=== PATIENT | female | born 1960 | race Caucasian/White ===

== ENCOUNTER 2025-01-01 20:21 | Inpatient (IN) | payer OTHER, SELFPAY ==
[2025-01-01] VITALS (12 sets, daily range): BP systolic 102–129; BP diastolic 49–90; PULSE 73–90; BMI 24.8
[2025-01-01 12:38] LABS: Hematocrit 35.9 % (37.0-47.0); Hemoglobin 12.1 g/dL (12.0-16.0); Mean Corp Hgb Conc. 33.7 g/dL (33.0-37.0); Mean Corpuscular Volume 94.0 fL (81.0-99.0); Nucleated Red Blood Cells % 0 %; Platelet Count 362 10^3/uL (130-400); Red Cell Dist. Width 13.0 % (11.5-14.5)
[2025-01-01 12:57] LABS: ALT (SGPT) 26 U/L (0-35); AST (SGOT) 37 U/L (14-36); Albumin 4.2 g/dl (3.5-5.0); Alkaline Phosphatase 75 U/L (38-126); Blood Urea Nitrogen 10 mg/dl (7-17); Calcium 9.4 mg/dl (8.4-10.2); Carbon Dioxide 22 mmol/L (22-30); Chloride 104 mmol/L (98-107); Glucose 101 mg/dl (70-99); Potassium 4.5 mmol/L (3.5-5.1); Sodium 134 mmol/L (135-145); Total Protein 6.5 g/dl (6.3-8.2); eGFR > 60.00
[2025-01-01 13:10] LABS: Troponin I < 0.012 ng/ml
--- NOTE | 2025-01-01 16:07 | ED.GENMED ---
History of Present Illness
General
Chief Complaint: Weakness
Source: patient and significant other
Exam Limitations: clinical condition and dementia
Time Seen by Provider: 01/01/25 14:48
Nursing documentation reviewed up to this point in time: agreed with
History of Present Illness
History of Present Illness:
pt is a 64 y/o F
h/o alzheimers
adrenal insufficiency (addisons) on steroids
gradual decline in ambulatory status th epas t1 mo
seems to have begun after a fall where she hit her head after being unable to catch herself when she started shuffling forward
she had no LOC
pt has a wheelchair but hadn't needed to use except for long distances
had no cane or walker
but noticing she is more an dmore weak, lightheaded, off balance
specifically the past 1 week she has been severely unable to walk
she stands and maybe takes a step or two and starts a forward shulffling an dcannot stop herself, leaning forward
pt fell again about 4 days ago without head strike
pt's cannot leave her side
she also has had about a month of diarrhea about 3 episdodes a day most days; has had issues getting herself to the bathroom becuas eof hthe walking trouble
pt has not had any vomtign or abd pain o rfever
she hasn't missed doses of her steorids
takes prednisone an dfludrocortisone
about 1 week ago she started having burning in her R abdomen
and some tiching
then got a rash and thoguht it was becuase of the back brace she has been wearing
then they started getting more like blisters and went to 4 day [facility]ago and got valtrex for shingles
pt has not used any more steroids with this infectoin
she has not had fever
Past History
Past History
ED Past Medical History: Asthma, Hypothyroidism and Other (Adrenal insufficiency, chronic low back pain, UTI, Low BP, Early Alzheimers)
ED Past Surgical History: None
Social History
Tobacco: Non-smoker
Alcohol: Occasional
Drug: None
Personal:
Living: with family
Review of Systems
Review of Systems
Allergies reviewed?: Yes
Unable to obtain full review of systems at this time due to: dementia
Other source history: family
Phy Exam
Physical Exam
Physical Exam:
GENERAL: Alert , in no apparent distress
HEAD: NCAT
EYE: pupils equal and reactive, no nystagmus, photophobia
NECK: Supple,full rom, nontender
ENT: o/p clr, mmm.
CARDIAC: Regular rate and rhythm . no edema
LUNGS: Clear breath sounds bilaterally, no acute respiratory distress, no wheezes/rales/rhonchi
ABDOMEN: Soft, without focal tenderness, no r/g, no cvat
NEUROLOGICAL: Alert and orientedx 2, cn intact, no facial asymmetry, 5/5 strength in UE/LE, sensation intact, cannot ambulate without assistance, has a wider base gait and then starts shuffling and seems weak
SKIN: Warm and dry, skin intact. Pale
MUSCULOSKELETAL: No edema, well perfused.
PSYCH: Normal and appropriate interaction.
Course
Orders/Labs/Results
Orders:
Orders
01/01/25 12:10
EKG [Electrocardiogram (*1)] Urgent
Reason for Study: Vertigo / Dizzy
EKG- Treatment ONCE
01/01/25 12:18
Complete Blood Count/With Diff Urgent
Comprehensive Metabolic Panel Urgent
Troponin I Urgent
01/01/25 15:49
Orthostatic VS- Treatment ONCE
01/01/25 15:50
CT Head W/o Iv Contrast Urgent
Comment:
Reason For Exam: fall 3 weeks ago, now shuffling gait;
Urinalysis Reflex To Culture Urgent
Date Specimen was Collected: 01/01/25
Time Specimen was Collected: 18:08
01/01/25 16:01
STOOL [C difficile Antigen & Toxins] Urgent
ELODIA Source: Feces/Stool
Specimen Description:
Date Specimen was Collected: 01/01/25
Time Specimen was Collected: 16:00
Stool Culture Urgent
ELODIA Source: Feces/Stool
Specimen Description:
Date Specimen was Collected: 01/01/25
Time Specimen was Collected: 16:00
01/01/25 17:15
Hydrocortisone Sod Succinate [Solu-Cortef] 100 mg IV NOW STA
Abnormal Lab Results
01/01/25
12:18
RBC 3.82 L 10^6/uL
(4.20-5.40)
Hct 35.9 L %
(37.0-47.0)
MCH 31.7 H pg
(27.0-31.0)
Neutrophils % 35.2 L %
(42.2-75.2)
Monocytes % 11.6 H %
(1.7-9.3)
Sodium 134 L mmol/L
(135-145)
Glucose 101 H mg/dl
(70-99)
AST 37 H U/L
(14-36)
01/01/25 12:18
01/01/25 12:18
Vital Signs
Initial and Last Documented VS:
Initial Vital Signs
Temp Pulse Resp BP Pulse Ox
36.8 C 86 16 102/72 99
01/01/25 12:06 01/01/25 12:06 01/01/25 12:06 01/01/25 12:06 01/01/25 12:06
Last Documented Vital Signs
Temp Pulse Resp BP Pulse Ox
36.8 C 78 18 106/85 99
01/01/25 12:06 01/01/25 14:15 01/01/25 18:00 01/01/25 14:02 01/01/25 16:11
MDM/Problems Addressed
Differential Diagnosis Includes:
Head trauma, hydrocephalus, hyponatremia or electrolyte disturbance, infection like UTI, colitis, adrenal insufficiency or adrenal crisis
MDM/Problems Addressed:
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 She had a fall when this really first began and she did strike her head at the time but had no change in mental status
from her baseline mild dementia. was able to get her up and she was able to walk without assistance for about 2 weeks until the last week when she is really needed significant assistance. She went from only using a wheelchair for long
distances to needing help after just standing up from sitting. She seems to have a couple of good steps and then will start shuffling forward, tilting forward and nearly falling onto her face. She last fell 4 days ago without any head strike. She
has not had a fever but recently broke out in a shingles rash. She went to urgent care for that diagnosis and has been on Valtrex. She has never received stress dose steroids to the 's knowledge. She has been taking her steroids. Over the
last 3 to 4 weeks she has had pretty liquid diarrhea.
On exam she has no focal neurodeficits but she certainly cannot walk unassisted, seems lightheaded with standing. Her blood pressure soft at 100 systolic. She has had several bouts of loose stool. I am concerned about hydrocephalus versus adrenal
crisis from recent infection with the shingles rash that is significantly present to her right abdomen with many vesicles on erythematous base
Less concerned about a UTI or sepsis causing this picture. Her CT does show dilated ventricles worse than previous which could be normal pressure hydrocephalus which does make sense. I discussed this case with ED attending. We will give her dose
of stress dose steroids in the meantime and admit for neuro consult
*Pulse Oximetry
SaO2: 99
Oxygen Mode of Delivery: Room air
Patient hypoxic: no (99)
*Critical Care Note
Total Time (30-74mins, 75-104mins- exclusive of procedures): Not Applicable
ED Attending Note
-
Portions of this chart may have been created with voice recognition software.� Occasional wrong word or��sound alike� substitutions may have occurred due to the inherent limitations of voice recognition software.
Discharge Plan
Departure
Patient Disposition: Admit
Date of Disposition: 01/01/25
Time of Disposition: 17:16
Admit to: Med/Surg
Presentation/result/management discussed w/ accepting MD/DO: Hospitalist
Condition: Fair
Covid-19: Not Applicable
Discharge Problem:
Ambulatory dysfunction, Adrenal insufficiency, Hydrocephalus
Prescriptions:
No Action
alendronate 70 MG tablet
70 mg PO FR@0800
atorvastatin 20 mg Tablet
20 mg PO HS
donepezil 10 mg Tablet
10 mg PO HS
sertraline 50 mg Tablet
50 mg PO DAILY
memantine 28 mg Capsule,Sprinkle,Er 24hr
28 mg PO DAILY
therapeutic multivitamin Tablet
1 tab PO DAILY
calcium carbonate 500 mg calcium (1,250 mg) Tablet
500 mg PO HS
diphenhydramine-acetaminophen [Tylenol PM Extra Strength] 25-500 mg Tablet
1 tab PO HS
fludrocortisone 0.1 MG tablet
0.05 mg PO BID Qty: 0 0RF
valacyclovir 1 gram Tablet
1,000 mg PO TID
Patient Comments:
01/01/2025, filled on 12/29/2024 and instructed to take 1 tablet TID for 7 days.
loperamide [Anti-Diarrheal (loperamide)] 2 mg Tablet
2 mg PO DAILYPRN PRN (Reason: diarrhea)
levothyroxine 125 mcg Tablet
125 mcg PO DAILY
lidocaine 5 % Adhesive Patch,Medicated
1 patch TOPICAL DAILYPRN PRN (Reason: R shoulder/middle & lower back)
ibuprofen 200 mg Tablet
600 mg PO BIDPRN PRN (Reason: mild pain)
vitamin E 268 mg (400 unit) Capsule
268 mg PO DAILY
Tums
2 tab PO TIDPRN PRN (Reason: diarrhea)
prednisone 5 MG tablet
5 mg PO DAILY
Referrals:
Lemuel Navarro MD [Family Provider, Internal Medicine]
Interventions
Interventions:
*Risk Screen - Suicide Last Done: 01/01/25 12:06
*General Assessment Last Done: 01/01/25 12:06
*Neglect/Abuse Screening Last Done: 01/01/25 12:06
*ED- Fall Risk Assessment Last Done: 01/01/25 14:25
*ED COVID-19 Vaccine History Last Done: 01/01/25 14:25
ED- Cardiac Assessment Last Done: 01/01/25 14:21
ED- Neurological Assessment Last Done: 01/01/25 14:21
ED- Pulmonary Assessment Last Done: 01/01/25 14:22
Discharge Date and Time
Print Language: CENTRAL AFRICAN
[2025-01-01] MEDS: SOLU-CORTEF 100 MG IV (17:36)
[2025-01-01 18:50] LABS: Urine Character Clear (Clear)
[2025-01-01 19:21] LABS: Urine Red Blood Cell 0-2 /HPF (0-2); Urine White Cell 0-2 /HPF (0-5)
--- NOTE | 2025-01-01 19:33 | HPS.HSE ---
Family Physician
-
Family Physician: Lemuel Navarro MD
Chief Complaint
-
falls
History of Present Illness
HPI
Adrenal insufficiency, chronic 5 mg BID prednisone
64F HX Adrenal insufficiency on steroids, recent Zoster on Valtrex seen at ER:
- pw few fall Falls and gradual decline in ambulatory status
- reports head strike with fall. Denied LoC
- chr gait dysfunction - use WC for long distances, no cane or walker
- weak, lightheaded, off balance
- reports a month of diarrhea about 3 episodes a day most days
- No vomiting
- Compliance with chronic steroids ( prednisone an dfludrocortisone)
- Recently Dxed abdominale wall shinglers [place] [facility] [place] started on Valtrex
- has not used any more steroids with this infectoin
- No fever
Medical History
Past Medical History
Past Medical History: Reports Other (Asthma, Hypothyroidism and Other (Adrenal insufficiency, chronic low back pain, UTI, Low BP, Early Alzheimers))
Past Surgical History: Reports None
Social History
Tobacco: Non-smoker
Alcohol: Occasional
Drug: None
Living: With Family
Family History
Family History: Not pertinent
Allergies / Home Medications
Allergies reflects when Allergies were last updated in [facility].
Home Medications with original date entered in [facility]
Allergy/Medication List:
Allergies
Allergy/AdvReac Type Severity Reaction Status Date / Time
Penicillins Allergy Unknown Unknown Verified 05/12/23 23:38
Home Medications
Multivitamin 1 tab PO DAILY 12/16/21
alendronate 70 mg tablet 70 mg PO WEEKLY 12/16/21
calcium-vitamin D3-vitamin K 500 mg-1,000 unit-40 mcg chewable tablet 1 ea PO DAILY 12/16/21
fludrocortisone 0.1 mg tablet 0.05 mg PO DAILY 12/16/21
levothyroxine 125 mcg tablet 125 mcg PO DAILY 12/16/21
prednisone 5 mg tablet 5 mg PO BID 12/16/21
vitamin E 268 mg (400 unit) capsule 400 unit PO DAILY 12/16/21
atorvastatin 20 mg tablet 20 mg PO DAILY 05/12/23
donepezil 10 mg tablet 10 mg PO DAILY 05/12/23
memantine 28 mg capsule sprinkle,extended release 24hr 28 mg PO DAILY 05/12/23
sertraline 50 mg tablet 50 mg PO DAILY 05/12/23
Review of Systems
-
Constitutional: Reports No Symptoms
EENT: Reports No Symptoms
Respiratory: Reports No Symptoms
Cardiac: Reports No Symptoms
Abdomen/GI: Reports No Symptoms
: Reports No Symptoms
Musculoskeletal: Reports No Symptoms
Skin: Reports No Symptoms
Neurological: Reports No Symptoms
Endocrine: Reports No Symptoms
Hematologic/Lymphatic: Reports No Symptoms
Psych: Reports No Symptoms
Physical Exam
Vital Signs
Vital Signs
Temp Pulse Resp BP Pulse Ox
98.2 F 78 18 106/85 99
01/01/25 12:06 01/01/25 14:15 01/01/25 18:00 01/01/25 14:02 01/01/25 16:11
Physical Exam
General: Well Developed, Well Nourished, No Apparent Distress, Comfortable, Conversant and Other (not toxic looking )
HEENT: NormoCephalic, Moist mucous membranes, Atraumatic and Other (pale complexion )
Respiratory: Clear
Cardiac: S1/S2 and Regular Rhythm; No Murmur or Rub
GI: Soft, Non Tender, Non Distended and Normal Bowel Sounds; No Organomegaly
Rectal: Deferred by Provider
Musculoskeletal: No Clubbing, No Cyanosis and No Edema
Skin: Rash (Rt sided ant abdominal wall shingles )
Neuro: Nonfocal/grossly intact
Psych: Calm
Laboratory Results
-
01/01/25 12:18
01/01/25 12:18
Laboratory Results
Total Bilirubin 0.5 mg/dl (0.2-1.3) 01/01/25 12:18
AST 37 U/L (14-36) H 01/01/25 12:18
ALT 26 U/L (0-35) 01/01/25 12:18
Alkaline Phosphatase 75 U/L (38-126) 01/01/25 12:18
Troponin I < 0.012 ng/ml 01/01/25 12:18
Data Reviewed
-
CT Scan: Report Reviewed by me
Lab Data: Labs Reviewed by me
Old Records: Reviewed
Impression/Plan
-
VSS
01/01/25
12:06 01/01/25
14:02
Temp 98.2 F
Pulse 86
Resp Rate 16
Blood pressure 102/72 106/85
SaO2 99
Oxygen Mode of Delivery Room air
Labs
01/01/25 01/01/25
12:18 18:09
WBC 4.8
Hgb 12.1
Sodium 134 L
Potassium 4.5
Carbon Dioxide 22
Creatinine 0.9
eGFR > 60.00
AST 37 H
Troponin I < 0.012
Urine WBC (Reflex) 0-2
Urine Bacteria (Reflex) Few A
HCT
- No evidence for acute intracranial hemorrhage.
- Ventricular dilation which has progressed since CT scan in November 2021.
As described, findings suggest the possibility of normal pressure hydrocephalus.
- Leukomalacia, which appears greatest in the periventricular white matter of the superior right parietal lobe, with progression since previous CT examinations. Findings could represent demyelination and/or small vessel ischemic change.
- As warranted, consideration for further evaluation with MRI of the brain.
Last hospitalist admission: 05/13/2023 - 05/15/2023
PRIMARY DIAGNOSES:
1. Fever with chills, suspected viral.
2. Weakness worse than baseline, suspected probably combination of
infection and adrenal insufficiency.
3. Hyponatremia suspected secondary to adrenal insufficiency.
SECONDARY DIAGNOSIS: History of chronic adrenal insufficiency on
prednisone and fludrocortisone.
ASSESSMENT & PLAN
Pending Rx reconciliation
Immunocompromise patient
HX chr prednisone dependent due to adrenal adrenal insufficiency
Falls with head strike - NEG HCT for acute ICH
Hypotension: DDX: brewing sepsis vs relative adrenal insufficiency due to acute viral infection with VCZ vs dehydration
So far No Fever, Nl WCC. Clinically not toxic looking
Asso. severe general weakness and debility
Acute on chronic ambulatory dysfunction.
DDX: Sepsis, Symptomatic adrenal insufficiency due to vomiting loss of prednsione triggered by acute infection
- HX PCN allergy
- IV hydrocortisone 100mg stat at ER
- sress dose IV hydrocortisone 50 mg q8h
- IV NS
- BCx then Empiric IV vanco and Aztreonam in case brewing sepsis
- PT/OT
Rt sided ant abdominal wall VCZ shingles
- cont. Valtrex
Hypothyroidism
- Continue T4 supplementation.
- Patient denies hypopituitarism with hypothyroid and adrenal insufficiency.
HX Dementia vs MCI
Questionable NPH on CT
Chr gait dysfunction
- On Donepezil
- PT/OT
DVT Px: LMWH
Full code
IMU
--- NOTE | 2025-01-01 22:09 | PHA.VAN.IN ---
Assessment
- Assessment
Renal Function: Appears similar to baseline
Maximum Temperature: 98.2
Minimum Temperature: 97.6
Concomitant Antimicrobials: Aztreonam
AUC Dosing Plan
- Empiric Dosing
Initial / Loading Dose: 1500mg-7/6
Maintenance Regimen: 1500mg Q24H
Estimated AUC (mcg*h/mL): 557
Estimated Peak (mcg*h/mL): 40.5
Estimated Trough (mcg/ml): 11.5
Estimated Half Life (H): 12.4
- Monitoring
No levels ordered at this time: Consider levels in next few days
Pharmacokinetics Vancomycin I
- -
Patient Age: 64
Patient Sex: Female
Vancomycin Day #: 1
Indication: Other/Seps
Requesting Provider: Dr. Oscar
Pertinent Antimicrobial Allergies:
Penicillins
Height / Weight:
Height 5 ft 7 in
Actual Weight 71.7 kg
- Vital Signs / Lab Results
Temp Pulse Resp BP Pulse Ox
97.6 F 72 23 128/76 95
01/01/25 21:41 01/01/25 21:00 01/01/25 21:00 01/01/25 21:00 01/01/25 20:00
Lab Results - Hematology
01/01/25
12:18
WBC 4.8
Lab Results - Chemistry
01/01/25
12:18
BUN 10
Creatinine 0.9
Albumin 4.2
Lab Results - Urine
01/01/25
18:09
Urine Nitrite (Reflex) Negative
Leukocyte Esterase Rfl 1+ A
Urine WBC (Reflex) 0-2
Ur Squamous Epith Cells 3-5
Urine Bacteria (Reflex) Few A
[2025-01-01] MEDS: NSS 1000 IV (22:12)
[2025-01-01] MEDS: LIPITOR 20 MG PO (22:30)
[2025-01-01] MEDS: VANCOCIN 530 MG IV (22:31)
[2025-01-01] MEDS: VALTREX 1000 MG PO (22:31)
[2025-01-01] MEDS: STERILE WATER FOR INJECTION 10 ML IV (22:32)
[2025-01-01] MEDS: AZACTAM 1000 MG IV (22:32)
[2025-01-01] MEDS: ARICEPT 10 MG PO (22:33)
[2025-01-01] MEDS: SOLU-CORTEF 50 MG IV (23:27)
[2025-01-02] VITALS (14 sets, daily range): BP systolic 103–134; BP diastolic 50–82; PULSE 93–113; O2SAT 97; BMI 24.5
--- NOTE | 2025-01-02 02:39 | PTCARENOTE ---
Received patient from the ED overnight, pleasantly confused. IVF, IV abx infusing as ordered. Maintained on airborne precautions for shingles. No complaints of pain. Multiple small loose stools. Stool studies pending. Will continue to monitor.
[2025-01-02 03:19] LABS: Hematocrit 35.7 % (37.0-47.0); Hemoglobin 12.7 g/dL (12.0-16.0); Mean Corp Hgb Conc. 35.6 g/dL (33.0-37.0); Mean Corpuscular Volume 91.1 fL (81.0-99.0); Platelet Count 388 10^3/uL (130-400); Red Cell Dist. Width 12.9 % (11.5-14.5)
[2025-01-02 03:37] LABS: ALT (SGPT) 28 U/L (0-35); AST (SGOT) 36 U/L (14-36); Albumin 4.5 g/dl (3.5-5.0); Alkaline Phosphatase 76 U/L (38-126); Blood Urea Nitrogen 10 mg/dl (7-17); Calcium 9.0 mg/dl (8.4-10.2); Carbon Dioxide 20 mmol/L (22-30); Chloride 108 mmol/L (98-107); Estimated Creatinine Clearance 70 ml/min; Glucose 122 mg/dl (70-99); Potassium 4.4 mmol/L (3.5-5.1); Sodium 136 mmol/L (135-145); Total Protein 7.0 g/dl (6.3-8.2); eGFR > 60.00
[2025-01-02] MEDS: STERILE WATER FOR INJECTION 10 ML IV (05:25)
[2025-01-02] MEDS: SYNTHROID 125 MCG PO (05:25)
[2025-01-02] MEDS: AZACTAM 1000 MG IV (05:25)
[2025-01-02] MEDS: SOLU-CORTEF 50 MG IV ×2 (08:19→17:05)
[2025-01-02] MEDS: NAMENDA 10 MG PO (08:19)
[2025-01-02] MEDS: ZOLOFT 50 MG PO (08:19)
[2025-01-02] MEDS: VALTREX 1000 MG PO ×3 (08:19→20:42)
--- NOTE | 2025-01-02 09:45 | PHA.VAN.FU ---
Vancomycin Assessment / Plan
- Assessment
Renal Function: Stable
WBC's are: WNL
In the past 24 hrs, patient has been: Afebrile
Concomitant Antimicrobials: aztreonam, valacyclovir
- Dosing Plan
Adjust Regimen to: Vanc 750mg Q12H starting at 1800
New Regimen Predicts: AUC (498), Peak (28.6), Trough (14.4)
- Monitoring Plan
No level(s) ordered at this time: consider levels in next few days
MRSA Screen: Ordered per protocol
- Follow Up
Pharmacy will continue to follow.
Vancomycin Follow UP
- -
Patient Age: 64
Patient Sex: Female
Vancomycin Day #: 2
Indication: Other
Requesting Provider: Dr. Oscar
Pertinent Antimicrobial Allergies:
Penicillins - unknown, occurred as a child, tolerated piperacillin
Height / Weight:
Height 5 ft 7 in
Actual Weight 70.9 kg
- Vital Signs / Lab Results
Temp Pulse Resp BP Pulse Ox
97.6 F 77 22 127/73 97
01/02/25 03:00 01/02/25 08:45 01/02/25 08:45 01/02/25 08:24 01/02/25 08:45
Lab Results - Hematology
01/01/25 01/02/25
12:18 03:04
WBC 4.8 7.5
Lab Results - Chemistry
01/01/25 01/02/25
12:18 03:04
BUN 10 10
Creatinine 0.9 0.8
Estimated Creat Clear 70
Albumin 4.2 4.5
01/01/25 01/02/25 01/02/25
22:09 01:24 03:04
Lactic Acid 2.3 H Cancelled 1.3
01/02/25
09:24
Lactic Acid Cancelled
Lab Results - Urine
01/01/25
18:09
Urine Nitrite (Reflex) Negative
Leukocyte Esterase Rfl 1+ A
Ur Squamous Epith Cells 3-5
Microbiology Results
01/01/25 16:01 C. difficile GDH Antigen & Toxins - Final
Feces/Stool Negative for toxigenic C.difficile
--- NOTE | 2025-01-02 09:53 | PTCARENOTE ---
Patient AOx1 (self). Bed alarm on and audible. Patient have frequent loose BM's. PRN Imodium. C-diff negative. On RA with SpO2 greater than 92%. NSR on monitor and tachycardia during ambulation with HR in the 120's. BP stable. Shingles on R side of
body. IIVF running per order. Call persaud within reach, bed in lowest position, and bed of wheels locked.
--- NOTE | 2025-01-02 09:54 | W.PN.HOSP.TC ---
Today's Communication/Plan
-
PT/OT eval
med/surg transfer
see note
Assessment / Plan
Assessment / Plan
1. Hypotension
- no clear signs of sepsis, stop further Abx and monitor
- volume depletion with diarrhea or worsening of steroids deficiency can explain symptoms
- maintained on IVF for now,
- Started on IV Solucortef 50mg q8h at admission, continue for now. at home on Prednisone 5mg/d
2. Valdez's disease
- on regimen of prednisone 5mg/d and florinef 0.05mg/d at home
- hold oral prednisone, on IV solucortef currently
- maintain on florinef home dose
3. Shingles
- extensive involving right abd wall
- start date unclear, patient does not remember
- maintain on valtrex therapy
- blisters are scabbing, isolation per Infections prevention
4. Chronic diarrhea
- f/us with GI, does not remember name of physician
- will maintain on PRN Imodium
- will need to f/u with OP GI for further evaluation
5. Memory issues
- maintain on mematine
DVT PPX - lovenox
Full code
Transfer to med/surg
Anticipated Discharge: 24 - 48 hours
Subjective/Interval History
-
Date of Service: January 02, 2025
complains of having diarrhea, which is long term care social worker
no fever overnight
denies of having abd pain
Objective Data
-
Labs:
Laboratory Results
01/02/25
03:04
WBC 7.5
Hgb 12.7
Hct 35.7 L
Plt Count 388
Sodium 136
Potassium 4.4
Chloride 108 H
Carbon Dioxide 20 L
BUN 10
Creatinine 0.8
Glucose 122 H
Calcium 9.0
Total Bilirubin 0.5
AST 36
ALT 28
Alkaline Phosphatase 76
Vital Signs:
Vital Signs
Temp Pulse Resp BP Pulse Ox
97.6 F 77 22 127/73 97
01/02/25 03:00 01/02/25 08:45 01/02/25 08:45 01/02/25 08:24 01/02/25 08:45
I&O
01/01/25 01/02/25 01/03/25
06:59 06:59 06:59
Intake Total 1809
Balance 1809
Review of Systems
-
Respiratory: Reports No Symptoms
Cardiac: Reports No Symptoms
Abdomen/GI: Denies Diarrhea
Physical Exam
-
General: No Apparent Distress
HEENT: Negative Oxygen
Respiratory: Clear to Auscultation
Cardiac: Regular Rhythm and S1/S2; Negative Tachycardic
GI: Soft, Nontender and Nondistended
Neuro: AO x 3
Psych: Calm
[2025-01-02] MEDS: NSS 1000 IV ×2 (10:08→17:05)
[2025-01-02] MEDS: IMODIUM 2 MG PO (10:08)
[2025-01-02] MEDS: FLORINEF 0.05 MG PO (10:16)
--- NOTE | 2025-01-02 12:30 | PTCARENOTE ---
Assumed care of patient. Assessment completed and documented in shift assessment.
Patient is pleasantly confused, disoriented to time. Bed Alarm active. RA, lungs CTA. SR on monitor. L FA IV patent, infusing NS at 100. Frequently OOB to BSC for urination/diarrhea. Shingles Rash prominent throughout right-side of flank/back. This
RN personally believes some lesions are open so will continue airborne percautions at this time. Awaiting med-surgical bed.
[2025-01-02 12:58] LABS: Magnesium 2.0 mg/dl (1.6-2.3)
--- NOTE | 2025-01-02 14:50 | PTCARENOTE ---
Sent photo via TT for Dr. Ingram to clarify precaution orders. Dr. Ingram in agreement with this RN's assessment that patient should be on airborne precautions.
[2025-01-02] MEDS: LOVENOX 40 MG SC (17:05)
[2025-01-02] MEDS: LIPITOR 20 MG PO (20:42)
[2025-01-02] MEDS: ARICEPT 10 MG PO (20:42)
--- NOTE | 2025-01-02 21:01 | PTCARENOTE ---
Caring for pt overnight. aaox1, confused, forgetful, bed alarm on. Remains contact & airborne precautions for exposure to open wound shingles. Remains RA, HR regular. OOB to BSC X1. Pt still c/o dizziness & lightheadness. Denies pain. NO SOB. Will
monitor.
[2025-01-03] MEDS: SOLU-CORTEF 50 MG IV (00:25)
[2025-01-03 00:55] VITALS: BMI 24.5
[2025-01-03] MEDS: NSS 1000 IV (04:42)
[2025-01-03] MEDS: SYNTHROID 125 MCG PO (04:42)
[2025-01-03 05:02] LABS: Hematocrit 33.9 % (37.0-47.0); Hemoglobin 11.4 g/dL (12.0-16.0); Mean Corp Hgb Conc. 33.6 g/dL (33.0-37.0); Mean Corpuscular Volume 94.7 fL (81.0-99.0); Platelet Count 384 10^3/uL (130-400); Red Cell Dist. Width 12.9 % (11.5-14.5)
[2025-01-03 05:30] LABS: Blood Urea Nitrogen 6 mg/dl (7-17); Calcium 8.9 mg/dl (8.4-10.2); Carbon Dioxide 23 mmol/L (22-30); Chloride 112 mmol/L (98-107); Estimated Creatinine Clearance 80 ml/min; Glucose 104 mg/dl (70-99); Potassium 3.4 mmol/L (3.5-5.1); Sodium 141 mmol/L (135-145); eGFR > 60.00
--- NOTE | 2025-01-03 08:00 | PTCARENOTE ---
Assumed care of patient at 0645. Assessment completed and documented in nursing shift assessment on Worklist.
Patient is AAOxself, impulsive and forgetful. Bed alarm active for safety/fall risk. LIRA, uncooperative at times. Chronic pain in lower reported, manageable. On RA, diminished lung feliz throughout. +1 B/L LE edema, + pulses. Vitals stable. L FA IV
hep-locked, patent. Round abdomen, + BS. No BM today, passing flatus. Good appetite when meals ordered for her. Voiding yellow/straw urine in BSC. Bruising to B/L LE, large diffuse shingles rash extending from right flank to back MAURO.
Allowed RN to complete EKG that she initially refused this morning.
--- NOTE | 2025-01-03 08:18 | W.PN.HOSP.TC ---
Today's Communication/Plan
-
still requiring isolation for shingles
cont valcyclovir and pain control
wean stress dose steroids
d/c planning--await CM
Assessment / Plan
Assessment / Plan
pt is a 64 year old female
1. Hypotension--BP much improved--will decrease stress steroids
- no clear signs of sepsis, stop further Abx and monitor
- volume depletion with diarrhea or worsening of steroids deficiency can explain symptoms
- maintained on IVF for now,
- Started on IV Solucortef 50mg q8h at admission, continue for now. at home on Prednisone 5mg/d
2. [place]'s disease--weaning stress stereoids and cont florinef
- on regimen of prednisone 5mg/d and florinef 0.05mg/d at home
- hold oral prednisone, on IV solucortef currently
- maintain on florinef home dose
3. Shingles--still with open lesions--cont valcyclovir
- extensive involving right abd wall
- start date unclear, patient does not remember
- maintain on valtrex therapy
- blisters are scabbing, isolation per Infections prevention
4. Chronic diarrhea--pt does not c/o to me currently--outpt followup with GI
- f/us with GI, does not remember name of physician
- will maintain on PRN Imodium
- will need to f/u with OP GI for further evaluation
5. Memory issues--await CM notes--therapy rec SNF vs home with 24/7 supervision
- maintain on mematine
DVT PPX - lovenox
Full code
Transfer to med/surg
Anticipated Discharge: 24 - 48 hours
Subjective/Interval History
-
Date of Service: January 03, 2025
pt wants to see if the EKG is 'covered' prior to letting us get one
c/o being tired
Objective Data
-
Labs:
Laboratory Results
01/03/25
04:41
WBC 8.7
Hgb 11.4 L
Hct 33.9 L
Plt Count 384
Sodium 141
Potassium 3.4 L
Chloride 112 H
Carbon Dioxide 23
BUN 6 L
Creatinine 0.7
Glucose 104 H
Calcium 8.9
Vital Signs:
max temp for 24 hours
01/02/25
15:45
Temp 97.9 F
Vital Signs
Temp Pulse Resp BP Pulse Ox
97.5 F 73 17 130/79 95
01/02/25 22:48 01/02/25 22:48 01/02/25 22:48 01/02/25 22:48 01/02/25 22:48
I&O
01/02/25 01/03/25 01/04/25
06:59 06:59 06:59
Intake Total 1809 700 / 700
Balance 1809 700 / 700
Review of Systems
-
All other systems: Reviewed and negative
Constitutional: Reports Fatigue
Physical Exam
-
General: Well Developed, Well Nourished and No Apparent Distress
HEENT: Normocephalic and Atraumatic
Respiratory: Clear to Auscultation; Negative Wheezes or Rhonchi
Cardiac: Regular Rhythm and S1/S2; Negative Murmur
GI: Soft, Nontender, Nondistended and Normal Bowel Sounds
Musculoskeletal: No Clubbing, No Cyanosis and No Edema
Skin: Rash (shingles rash with open lesions on the back--wrapping around to front (all on right)-- does not cross midline)
Neuro: Awake and Alert
Psych: Apparent Dementia
[2025-01-03 08:21] VITALS: BP 131/83
[2025-01-03 08:27] VITALS: BP 131/83
[2025-01-03] MEDS: FLORINEF 0.05 MG PO (09:31)
[2025-01-03] MEDS: VALTREX 1000 MG PO ×3 (09:32→20:36)
[2025-01-03] MEDS: KCL 40 MEQ PO (09:32)
[2025-01-03] MEDS: SOLU-CORTEF IV (09:32)
[2025-01-03 14:49] VITALS: BP 115/65
[2025-01-03 15:00] VITALS: BP 115/65
[2025-01-03] MEDS: BENADRYL 25 MG PO (15:40)
[2025-01-03] MEDS: TYLENOL 650 MG PO ×2 (15:40→21:09)
--- NOTE | 2025-01-03 15:47 | CM ---
Addendum entered by Louann Castellano RN 01/03/25 16:01:
Additionally, attempted to discuss LTC planning with . He says patient will not want to go to a facility to live, having seen her parent reside in one.
Original Note:
Patient with Hx Alzheimers, falls with Dx hypotension, [place]'s disease, shingles. Contact Precautions/Airborne Precautions. Room air. Receiving IV Solucortef. PT recommends HH, OT recommends SNF vs home w/assist. Per nurse; confused,
forgetful.
Met with patient's Shad;
the patient resides with her in a 2 story house with 1 +1 outside steps.
She is assisted with ADLs and ambulation by her , who has been her sole caregiver.
He assists the patient to stand and walk into the bathroom using her RW, howewver wobbles when she walks.
The patient has fallen 2x within the last month.
DME - RW, w/c, shower bench
No prior VN or SNF.
Offered SNF for rehab vs home with HH and caregiver. says he prefers patient to return home with HH and he will contact caregiver agencies. Shad says the patient is not really motivated to do PT/OT and hasn't been very ambulatory since
last year. offered VN choice and chooses [facility]. Discussed caregiver for respite and provided caregiver list, as likes to to volunteer work in the evenings and may want someone from 6p-10pm. He has been leaving her alone while he
goes out and does errands, and is aware of recommendation for 24/7 supervision. The patient has a LTC insurance policy that will pay for 5 yrs of in home care or SNF care, but once activated cannot be undone, so doesn't want to use it until
he is told she is close to the end of life.
May need ambulance transport home.
Plan home with [facility], possibly with caregiver.
--- NOTE | 2025-01-03 15:50 | VNURNOTE ---
Home Health Liaison spoke with patient's spouse Shad to discuss [facility] nurse/therapy, visits, schedule and homebound status. He is agreeable and understands that visits at home will be 2-3 x per week to assess and teach medical management. Offered
to include CARDIOLOGY PHYSICIAN and MAT SEWER services and spouse was agreeable. Urged spouse to investigate private CGs and pt was rec 24 hr supervision. Spouse verbalized understanding. He is aware that [facility] will contact them for start of care in 1-2 days after
discharge from .
[facility] referral completed in [facility].
[2025-01-03] MEDS: LOVENOX 40 MG SC (18:03)
[2025-01-03] MEDS: ARICEPT 10 MG PO (20:36)
[2025-01-03] MEDS: SOLU-CORTEF 25 MG IV (20:36)
[2025-01-03] MEDS: LIPITOR 20 MG PO (20:37)
--- NOTE | 2025-01-03 21:17 | PTCARENOTE ---
Addendum entered by Raul Wallace RN 01/03/25 21:31:
Spoke with Brandyn (), updated. He will be in around 10AM tomorrow.
Original Note:
Report called to [facility] Wiggins on 3W. Patient updated on new room assigned. called and voicemail message left to notify on new room. Patient belongings packed up. Pt transferred to room 320 via wheelchair with PCT. Pt voided in BR and Tylenol
given prior to transport.
[2025-01-03 23:00] VITALS: BP 121/68
--- NOTE | 2025-01-04 02:01 | TRANSFER ---
Pt transferred to 3W from IMU via wheel chair. Pt able to stand and pivot to bed. Pt placed on airborne/ contact precaution for current shingles rash. Bp 121/68 P 70 R 20 O2 99 T 97.4. Pt oriented to room, call persaud within reach, plan of care
ongoing.
[2025-01-04] MEDS: SYNTHROID 125 MCG PO (05:44)
[2025-01-04 06:00] VITALS: BMI 24.7
[2025-01-04 07:21] VITALS: BP 124/83
[2025-01-04 07:45] LABS: Hematocrit 31.4 % (37.0-47.0); Hemoglobin 10.6 g/dL (12.0-16.0); Mean Corp Hgb Conc. 33.8 g/dL (33.0-37.0); Mean Corpuscular Volume 94.6 fL (81.0-99.0); Platelet Count 361 10^3/uL (130-400); Red Cell Dist. Width 13.1 % (11.5-14.5)
[2025-01-04 08:19] LABS: Blood Urea Nitrogen 9 mg/dl (7-17); Calcium 8.9 mg/dl (8.4-10.2); Carbon Dioxide 24 mmol/L (22-30); Chloride 111 mmol/L (98-107); Estimated Creatinine Clearance 80 ml/min; Glucose 77 mg/dl (70-99); Magnesium 2.2 mg/dl (1.6-2.3); Potassium 4.1 mmol/L (3.5-5.1); Sodium 140 mmol/L (135-145); eGFR > 60.00
[2025-01-04] MEDS: VALTREX 1000 MG PO ×3 (09:09→22:14)
[2025-01-04] MEDS: FLORINEF 0.05 MG PO (09:13)
[2025-01-04] MEDS: ZOLOFT 50 MG PO (09:14)
[2025-01-04] MEDS: SOLU-CORTEF 25 MG IV (09:15)
[2025-01-04] MEDS: TYLENOL 650 MG PO (09:24)
--- NOTE | 2025-01-04 11:29 | CM ---
Addendum entered by Susanne Parikh 01/04/25 16:17:
PT/OT rec SNF
Discussed options - prefer [facility]
Referral placed in careport
PLAN: SNF, pending bed availability/acceptance
Original Note:
Spoke with patient
stated he just received list for caregivers last evening & has not called yet
stated he and patient would prefer SNF
PT/OT to re-eval
PLAN: ?SNF, await therapy re-evals
[2025-01-04] MEDS: DELTASONE 5 MG PO (11:41)
--- NOTE | 2025-01-04 14:42 | W.PN.HOSP.TC ---
Today's Communication/Plan
-
Spouse opted for SNF rehab placement
Switch to oral steroid
Provide Imodium for diarrhea
Assessment / Plan
Assessment / Plan
pt is a 64 year old female
1. Hypotension-
- no clear signs of sepsis, stop further Abx and monitor
- volume depletion with diarrhea or worsening of steroids deficiency can explain symptoms
- stop further IVF
- IV steroids switch to oral prednisone 5 mg daily home dose
2. [place]'s disease
- on regimen of prednisone 5mg/d and florinef 0.05mg/d at home
- Back on home dose of oral prednisone and Solu-Cortef
3. Shingles--still with open lesions--cont valcyclovir
- extensive involving right abd wall
- start date unclear, patient does not remember
- maintain on valtrex therapy
- blisters are scabbing, isolation per Infections prevention
4. Chronic diarrhea--pt does not c/o to me currently--outpt followup with GI
- f/us with GI, does not remember name of physician
- will maintain on PRN Imodium
- will need to f/u with OP GI for further evaluation
5. Memory issues--await CM notes--therapy rec SNF vs home with 24/7 supervision
- maintain on mematine
DVT PPX - lovenox
Full code
Anticipated Discharge: Within 24 hours
Subjective/Interval History
-
Date of Service: January 04, 2025
Complaining of some loose stool
No other issues overnight
Objective Data
-
Labs:
Laboratory Results
01/04/25
07:24
WBC 7.3
Hgb 10.6 L
Hct 31.4 L
Plt Count 361
Sodium 140
Potassium 4.1
Chloride 111 H
Carbon Dioxide 24
BUN 9
Creatinine 0.7
Glucose 77
Calcium 8.9
Vital Signs:
Vital Signs
Temp Pulse Resp BP Pulse Ox
97.9 F 72 16 124/83 99
01/04/25 07:21 01/04/25 07:21 01/04/25 07:21 01/04/25 07:21 01/04/25 09:24
I&O
01/03/25 01/04/25 01/05/25
06:59 06:59 06:59
Intake Total 700 / 700 280 / 280
Balance 700 / 700 280 / 280
Review of Systems
-
Respiratory: Reports No Symptoms
Cardiac: Reports No Symptoms
Abdomen/GI: Reports Diarrhea; Denies Abdominal Pain or Nausea
Physical Exam
-
General: No Apparent Distress
HEENT: Negative Oxygen
Respiratory: Clear to Auscultation; Negative Rhonchi
Cardiac: Regular Rhythm and S1/S2; Negative Murmur
GI: Soft and Nontender
Skin: Rash (shingles rash with open lesions on the back--wrapping around to front (all on right)-- does not cross midline)
Neuro: Awake and Alert
Psych: Apparent Dementia
[2025-01-04] MEDS: IMODIUM 2 MG PO (16:18)
--- NOTE | 2025-01-04 16:31 | PTCARENOTE ---
patient still has open lesions on back wrapping around to front on right. still with diarrhea, PRN Immodium administered as ordered, tolerating diet, transferring to bsc/chair with mod assist x1, vss, will continue to monitor.
[2025-01-04 16:47] VITALS: BP 130/75
[2025-01-04] MEDS: LOVENOX 40 MG SC (17:23)
[2025-01-04] MEDS: ARICEPT 10 MG PO (22:14)
[2025-01-04] MEDS: LIPITOR 20 MG PO (22:14)
[2025-01-04 23:00] VITALS: BP 125/79
[2025-01-05 03:03] VITALS: BMI 25.0
[2025-01-05] MEDS: SYNTHROID 125 MCG PO (05:53)
[2025-01-05 07:28] LABS: Hematocrit 32.0 % (37.0-47.0); Hemoglobin 10.9 g/dL (12.0-16.0); Mean Corp Hgb Conc. 34.1 g/dL (33.0-37.0); Mean Corpuscular Volume 93.3 fL (81.0-99.0); Platelet Count 379 10^3/uL (130-400); Red Cell Dist. Width 12.8 % (11.5-14.5)
[2025-01-05 07:30] VITALS: BP 132/89
[2025-01-05 07:33] LABS: Blood Urea Nitrogen 12 mg/dl (7-17); Calcium 9.2 mg/dl (8.4-10.2); Carbon Dioxide 27 mmol/L (22-30); Chloride 108 mmol/L (98-107); Estimated Creatinine Clearance 80 ml/min; Glucose 78 mg/dl (70-99); Potassium 3.8 mmol/L (3.5-5.1); Sodium 140 mmol/L (135-145); eGFR > 60.00
[2025-01-05] MEDS: FLORINEF 0.05 MG PO (09:39)
[2025-01-05] MEDS: DELTASONE 5 MG PO (09:39)
[2025-01-05] MEDS: VALTREX 1000 MG PO ×3 (09:40→22:15)
[2025-01-05] MEDS: ZOLOFT 50 MG PO (09:40)
[2025-01-05 16:00] VITALS: BP 128/86
[2025-01-05] MEDS: LOVENOX 40 MG SC (16:07)
--- NOTE | 2025-01-05 16:17 | CM ---
[facility] unable to accept
Patient primary insurance is [employer] (subsidiary of [facility], [facility] - was in 30yrs)
CM Called [employer] & spoke with Lindsay Maldonado and confirmed this is primary
Lindsay gave CM SNF's that are close that take this insurance - [facility] & [facility] - which referrals were sent in [facility].
Spoke with Liv in admissions
also has been inquiring about private Caregivers as well.
PLAN: SNF, pending acceptance/bed availability
--- NOTE | 2025-01-05 17:06 | W.PN.HOSP.TC ---
Today's Communication/Plan
-
awaiting dispo to SNF
Assessment / Plan
Assessment / Plan
pt is a 64 year old female
1. Hypotension-
- no clear signs of sepsis, stop further Abx and monitor
- volume depletion with diarrhea or worsening of steroids deficiency can explain symptoms
- stop further IVF
- IV steroids switch to oral prednisone 5 mg daily home dose
2. [place]'s disease
- on regimen of prednisone 5mg/d and florinef 0.05mg/d at home
- Back on home dose of oral prednisone and Solu-Cortef
3. Shingles--still with open lesions--cont valcyclovir
- extensive involving right abd wall
- start date unclear, patient does not remember
- maintain on valtrex therapy
- blisters are scabbing, isolation per Infections prevention
4. Chronic diarrhea
- f/us with GI, does not remember name of physician
- will maintain on PRN Imodium
- will need to f/u with OP GI for further evaluation
5. Memory issues
- maintain on mematine
DVT PPX - lovenox
Full code
Anticipated Discharge: Today
Subjective/Interval History
-
Date of Service: January 05, 2025
no complains overnight
Objective Data
-
Labs:
Laboratory Results
01/05/25
06:40
WBC 9.4
Hgb 10.9 L
Hct 32.0 L
Plt Count 379
Sodium 140
Potassium 3.8
Chloride 108 H
Carbon Dioxide 27
BUN 12
Creatinine 0.7
Glucose 78
Calcium 9.2
Vital Signs:
Vital Signs
Temp Pulse Resp BP Pulse Ox
98.0 F 87 18 128/86 99
01/05/25 16:00 01/05/25 16:00 01/05/25 16:00 01/05/25 16:00 01/05/25 16:00
I&O
01/04/25 01/05/25 01/06/25
06:59 06:59 06:59
Intake Total 280 / 280 2040 / 2040 960 / 960
Balance 280 / 280 2040 / 2040 960 / 960
Review of Systems
-
Respiratory: Reports No Symptoms
Cardiac: Reports No Symptoms
Abdomen/GI: Reports No Symptoms
Physical Exam
-
General: No Apparent Distress
HEENT: Negative Oxygen
Respiratory: Clear to Auscultation; Negative Rhonchi
Cardiac: Regular Rhythm and S1/S2; Negative Murmur
GI: Soft and Nontender
Skin: Rash (shingles rash with open lesions on the back--wrapping around to front (all on right)-- does not cross midline)
Neuro: Awake and Alert
Psych: Apparent Dementia
[2025-01-05] MEDS: TYLENOL 650 MG PO (19:55)
[2025-01-05] MEDS: ARICEPT 10 MG PO (22:15)
[2025-01-05] MEDS: LIPITOR 20 MG PO (22:15)
[2025-01-05 23:46] VITALS: BP 129/87
[2025-01-06] MEDS: SYNTHROID 125 MCG PO (05:21)
[2025-01-06 07:30] VITALS: BP 122/81
[2025-01-06] MEDS: DELTASONE 5 MG PO (08:39)
[2025-01-06] MEDS: ZOLOFT 50 MG PO (08:40)
[2025-01-06] MEDS: VALTREX 1000 MG PO (08:40)
[2025-01-06] MEDS: FLORINEF 0.05 MG PO (08:40)
--- NOTE | 2025-01-06 11:33 | CM ---
Addendum entered by Susanne Parikh 01/06/25 16:52:
Ambulance auth approval #: [id number]
01/06/25-04/06/26
Addendum entered by Susanne Guerrancyoel 01/06/25 16:34:
Authorization approval #: [id number]
start 01/06/25 7 days NRD 01/13/25
updated Cynthia from [facility]
PLAN: [facility]
Report #: [phone]
Fax #: [phone]
transportation forms on chart
Addendum entered by Susanne Parikh 01/06/25 12:50:
Spoke with Ariadna at [email or web address] [facility] at [phone]
Pending auth #: [id number]
Faxed clinicals to [phone]
Ambulance pending auth #: [id number]
AWAIT APPROVAL
PLAN: [facility], once auth approved
Report #: [phone]
Fax #: [phone]
transportation forms on chart
Original Note:
Patient seen at bedside
Spoke with Shad
spoke with [facility]thia liaison [phone] & they have a bed today
Patient accepted at [facility]
patient/ agreeable
CM to call & initiate insurance auth after PT eval today with [email or web address] [facility] (subsidiary of )
seen by OT today - requested PT to see today
[facility] NPI #: [id number]
DR. RAJIV COBIAN NPI #: [id number]
PLAN: [facility], once auth is obtained
--- NOTE | 2025-01-06 13:21 | W.PN.HOSP.TC ---
Addendum entered and electronically signed by Td Ingram MD 01/06/25 15:51:
All blisters have ruptured and dried out and started to scab
Patient has finished 10 day course of Valtrex as well
Patient can be removed from airborne isolation.
Original Note:
Today's Communication/Plan
-
d/c planning for snf rehab
Assessment / Plan
Assessment / Plan
pt is a 64 year old female
1. Hypotension-
- no clear signs of sepsis, stop further Abx and monitor
- volume depletion with diarrhea or worsening of steroids deficiency can explain symptoms
- stop further IVF
- IV steroids switch to oral prednisone 5 mg daily home dose
2. [place]'s disease
- on regimen of prednisone 5mg/d and florinef 0.05mg/d at home
- Back on home dose of oral prednisone and Solu-Cortef
3. Shingles--still with open lesions--cont valcyclovir
- extensive involving right abd wall
- start date unclear, patient does not remember
- maintain on valtrex therapy
- blisters are scabbing, isolation per Infections prevention
4. Chronic diarrhea
- f/us with GI, does not remember name of physician
- will maintain on PRN Imodium
- will need to f/u with OP GI for further evaluation
5. Memory issues
- maintain on mematine
DVT PPX - lovenox
Full code
Anticipated Discharge: Today
Subjective/Interval History
-
Date of Service: January 06, 2025
No reported new issues
Subjective feeling better
Afebrile overnight
Objective Data
-
Vital Signs:
Vital Signs
Temp Pulse Resp BP Pulse Ox
97.8 F 94 18 122/81 99
01/06/25 07:30 01/06/25 07:30 01/06/25 07:30 01/06/25 07:30 01/06/25 07:30
I&O
01/05/25 01/06/25 01/07/25
06:59 06:59 06:59
Intake Total 2039 1560 / 1560
Balance 2039 1560 / 156
Review of Systems
-
Respiratory: Reports No Symptoms
Cardiac: Reports No Symptoms
Abdomen/GI: Reports No Symptoms
Physical Exam
-
General: No Apparent Distress
HEENT: Negative Oxygen
Respiratory: Clear to Auscultation; Negative Rhonchi
Cardiac: Regular Rhythm and S1/S2; Negative Murmur
GI: Soft and Nontender
Skin: Rash (shingles rash with open lesions on the back--wrapping around to front (all on right)-- does not cross midline)
Neuro: Awake and Alert
Psych: Apparent Dementia
--- NOTE | 2025-01-06 15:41 | PTCARENOTE ---
shingles lesions dried out, scabs forming. notified infection prevention and Ernestina agreed that patient could come off isolation. patient made aware, will continue to monitor.
[2025-01-06] MEDS: TYLENOL 650 MG PO (15:50)
[2025-01-06 16:00] VITALS: BP 116/76
[2025-01-06] MEDS: LOVENOX 40 MG SC (17:30)
--- NOTE | 2025-01-06 21:30 | PTCARENOTE ---
Pt transferred to rehab center via ambulance. IV removed.
--- NOTE | 2025-01-07 17:16 | W.DCSUMMARY ---
Discharge Summary
Discharge Data
Date of Admission: 01/01/25
Date of Discharge: 01/06/25
-
Pending Results: No
Hospital Course
Discharging Physician : Dr Td Ingram
Disposition : SNF rehab
Primary care physician : Dr Lemuel Navarro
Principal Discharge diagnosis :
Hypotension
[place]'s disease
Shingles
Chronic Discharge diagnosis :
Chronic diarrhea
Memory issues
Hyperlipidemia
Osteoporosis
Obesity
Hypothyroidism
Depression/anxiety
Hospital Course :
Patient is a 64-year-old female with mentioned past medical history came to ER with new onset of weakness and lethargy. Patient was found to be hypotensive in ER. Patient has a history of [place]'s disease and there was concern of patient being
possibly having an infection. Patient was provided IV fluid hydration and was put on stress dose of steroids. Infection workup was largely negative. Patient was recovering from shingles and was maintained on Valtrex therapy, no signs suggestive
of ongoing bacterial cellulitis. Patient had improvement in blood pressure and was resumed back on home dose of steroids. Post medical stabilization patient was deemed appropriate for snf facility for rehab and was discharged to rehab.
Of note patient has finished course of Valtrex therapy and has although blisters has been scabbing off patient was taken off of isolation before discharge.
Important imaging findings :
None
Procedure findings :
None
Discharge Plan
-
Patient Disposition: Custodial/SNF
Discharge Diagnosis/Procedures: Hypotension likely from adrenal insufficiency flare, shingles still with open lesions, chronic diarrhea, memory issues
Condition: Fair
Diet: Low Cholesterol
Activity: As tolerated
Driving Restrictions: No driving
Bathing Restrictions: None
Other Services: VN, PT and OT
Referrals:
Toni Pérez MD [Active, Gastroenterology]
Lemuel Navarro MD [Family Provider, Internal Medicine] - in less than 1 week
Prescriptions:
Continued
alendronate 70 MG tablet
70 mg PO FR@0800
atorvastatin 20 mg Tablet
20 mg PO HS
donepezil 10 mg Tablet
10 mg PO HS
sertraline 50 mg Tablet
50 mg PO DAILY
memantine 28 mg Capsule,Sprinkle,Er 24hr
28 mg PO DAILY
therapeutic multivitamin Tablet
1 tab PO DAILY
calcium carbonate 500 mg calcium (1,250 mg) Tablet
500 mg PO HS
diphenhydramine-acetaminophen [Tylenol PM Extra Strength] 25-500 mg Tablet
1 tab PO HS
fludrocortisone 0.1 MG tablet
0.05 mg PO BID Qty: 0 0RF
loperamide [Anti-Diarrheal (loperamide)] 2 mg Tablet
2 mg PO DAILYPRN PRN (Reason: diarrhea)
levothyroxine 125 mcg Tablet
125 mcg PO DAILY
lidocaine 5 % Adhesive Patch,Medicated
1 patch TOPICAL DAILYPRN PRN (Reason: R shoulder/middle & lower back)
ibuprofen 200 mg Tablet
600 mg PO BIDPRN PRN (Reason: mild pain)
vitamin E 268 mg (400 unit) Capsule
268 mg PO DAILY
Tums
2 tab PO TIDPRN PRN (Reason: diarrhea)
prednisone 5 MG tablet
5 mg PO DAILY
Discontinued
valacyclovir 1 gram Tablet
1,000 mg PO TID
Patient Comments:
01/01/2025, filled on 12/29/2024 and instructed to take 1 tablet TID for 7 days.
Discharge Orders:
Discharge Patient (As Directed); Ordered 01/06/25
Ordered By: Td Ingram
Discharge Date and Time
Discharge Date/Time: 01/06/25 21:35
Print Language: AMHARIC
== END 2025-01-06 21:35 | DRG 644 ==
LOC: 3 WEST ACU 20:21
PROVIDERS: Emergency Medicine; Physician Assistant; ADMITTING PHYSICIAN Internal Medicine; ATTENDING PHYSICIAN Hospitalist; EMERGENCY PHYSICIAN Emergency Medicine; FAMILY PHYSICIAN Internal Medicine
DX: E27.1 Primary adrenocortical insufficiency (principal); E87.1 Hypo-osmolality and hyponatremia; K52.9 Noninfective gastroenteritis and colitis, unspecified; R53.1 Weakness; G30.9 Alzheimer's disease, unspecified; I95.9 Hypotension, unspecified; B02.9 Zoster without complications; F02.80 Dementia in other diseases classified elsewhere, unspecified severity, without behavioral disturbance, psychotic disturbance, mood disturbance, and anxiety; R29.6 Repeated falls; E03.9 Hypothyroidism, unspecified; G89.29 Other chronic pain; E78.5 Hyperlipidemia, unspecified; M81.0 Age-related osteoporosis without current pathological fracture; J45.998 Other asthma; M54.50 Low back pain, unspecified; Z87.440 Personal history of urinary (tract) infections; Z79.52 Long term (current) use of systemic steroids; Z88.0 Allergy status to penicillin
CPT/HCPCS: 70450; 80048; 80053; 81003; 81015; 83605; 83735; 84484; 85025; 85027; 87040; 87045; 87046; 87070; 87077; 87086; 87324; 87427; 87449; 87641; 93005; 96374; 96375; 97116; 97163; 97167; 97530; 97535; 99285